=== PATIENT | male | born 1955 | race Caucasian/White ===

== ENCOUNTER → 2016-08-08 11:17 | Outpatient (CLI) | payer BC ==
[2016-08-08 11:47] LABS: BASOPHILS 0.4 % (0-2); EOSINOPHILS 2.4 % (0-7); HEMATOCRIT 38.2 % (42.0-54.0); HEMOGLOBIN 12.5 g/dL (13.5-17.5); IMMATURE GRANULOCYTES 0.1 % (0-5); LYMPHOCYTES 33.6 % (15-50); MCH 31.3 pg (26.0-34.0); MCHC 32.7 g/dL (31.0-37.0); MCV 95.7 fL (80.0-100.0); MEAN PLATELET VOLUME 7.9 fL (7.4-10.4); MONOCYTES 6.7 % (2-11); NEUTROPHILS 56.8 % (40-80); PLATELET COUNT 181 10x3/uL (130-400); RBC 3.99 10x6/uL (4.20-6.10); RDW 13.7 % (11.5-14.5); WBC 6.7 10x3/uL (4.8-10.8)
[2016-08-08 12:04] LABS: ALBUMIN 3.7 g/dL (3.4-5.0); ANION GAP 10.2 mmol/L (8-16); BILIRUBIN - TOTAL 0.38 mg/dL (0.2-1.3); CALCIUM 9.8 mg/dL (8.5-10.1); CARBON DIOXIDE 31.3 mmol/L (21.0-32.0); CREATININE - SERUM 1.4 mg/dL (0.6-1.3); POTASSIUM - SERUM 4.5 mmol/L (3.5-5.1); PROTEIN - SERUM 8.4 g/dL (6.4-8.2)
[2016-08-08 12:17] LABS: INR 1.04 (0.85-1.17); PROTIME 13.4 SECONDS (11.6-15.0)
[2016-08-09 09:12] LABS: ALPHA FETOPROTEIN -(TUMOR MRK) 4.2 ng/mL (0.0-8.3); HEPATITIS C ANTIBODY <0.1 (0.0-0.9)
== END | disposition home or self-care (01) ==
LOC: D.LAB 11:15
PROVIDERS: Internal Medicine Gastroenterology
DX: C18.9 Malignant neoplasm of colon, unspecified (principal); R68.89 Other general symptoms and signs; F10.10 Alcohol abuse, uncomplicated; K74.0 Hepatic fibrosis

== ENCOUNTER → 2016-10-30 20:54 | Outpatient (CLI) | payer BC | END | disposition home or self-care (01) | LOC: D.LABREF 20:54 | DX: M17.12 Unilateral primary osteoarthritis, left knee (principal); Z11.8 Encounter for screening for other infectious and parasitic diseases ==

== ENCOUNTER 2016-11-19 10:00 | Inpatient (IN) | payer BC ==
[~2016-11-19] VITALS: Ht 177.8 cm; Wt 136.4 kg
[~2016-11-19 10:00] MED LIST: ALFALFA PO; ASPIRIN EC81 M1 PO; BUPROPION HCL100 MG PO; CELEXA40 MG PO; COMBIGAN OPHT DR5 ML EACH EYE; CYCLOBENZAPRINE10 MG PO; DILAUDID4 MG PO; FISH OIL 1,0001 CA1 PO; FLOMAX0.4 MG PO; GLUCOSAMINE & C1 CAP PO; MECLIZINE HCL25 MG PO; NEXIUM40 MG PO; SUPER B COMPLE150 MG PO; TRAVATAN Z2.5 ML EACH EYE; TYLENOL #4 W/CO1 TAB PO; VITAMIN C1000 MG PO; VITAMIN D31000 UNIT PO; VITAMIN E400 UNI2 PO; XANAX0.5 MG PO; ZESTRIL20 MG PO; ZOCOR40 MG PO; ZYRTEC10 MG PO
[2016-11-19 12:15] LABS: ANION GAP 8.2 mmol/L (8-16); CALCIUM 9.4 mg/dL (8.5-10.1); CARBON DIOXIDE 31.2 mmol/L (21.0-32.0); CREATININE - SERUM 1.4 mg/dL (0.6-1.3); POTASSIUM - SERUM 4.4 mmol/L (3.5-5.1)
[2016-11-19 12:27] LABS: BASOPHILS 0.2 % (0-2); EOSINOPHILS 2.3 % (0-7); HEMATOCRIT 38.6 % (42.0-54.0); HEMOGLOBIN 12.6 g/dL (13.5-17.5); IMMATURE GRANULOCYTES 0.2 % (0-5); LYMPHOCYTES 34.9 % (15-50); MCH 31.7 pg (26.0-34.0); MCHC 32.6 g/dL (31.0-37.0); MCV 97.2 fL (80.0-100.0); MEAN PLATELET VOLUME 8.1 fL (7.4-10.4); MONOCYTES 8.9 % (2-11); NEUTROPHILS 53.5 % (40-80); PLATELET COUNT 188 10x3/uL (130-400); RBC 3.97 10x6/uL (4.20-6.10); RDW 13.6 % (11.5-14.5); WBC 6.1 10x3/uL (4.8-10.8)
[2016-11-19 12:46] LABS: APTT 30.4 SECONDS (22.8-39.4); INR 1.08 (0.85-1.17); PROTIME 13.8 SECONDS (11.6-15.0)
[2016-11-19 12:55] LABS: APPEARANCE CLEAR (CLEAR); BILIRUBIN NEGATIVE (NEGATIVE); COLOR YELLOW (YELLOW); GLUCOSE NEGATIVE (NEGATIVE); KETONE NEGATIVE (NEGATIVE); LEUKOCYTE ESTERASE NEGATIVE (NEGATIVE); NITRITE NEGATIVE (NEGATIVE); PROTEIN NEGATIVE (NEGATIVE); SPECIFIC GRAVITY 1.015 (1.005-1.020); UROBILINOGEN NORMAL (NORMAL)
[2016-11-25] VITALS (11 sets, daily range): BP systolic 105–155; BP diastolic 40–88; Ht 177.8 cm; Wt 136.4 kg
--- NOTE | 2016-11-25 09:07 | NUR ---
UNABLE TO REACH FAMILY FOR CATALINO
--- NOTE | 2016-11-25 10:59 | NUR ---
DR GARCIA NOTIFIED UPON ENTRANCE TO RR THE PATIENTS PAIN. DR GARCIA CAME TO BEDSIDE TO RE BLOCK THE PATIENT
--- NOTE | 2016-11-25 11:30 | NUR ---
PATIENT TO ROOM AT THIS TIME WITH IV INTACT. NO COMPLAINTS. VS STABLE. CALL LIGHT WITHIN REACH.
--- NOTE | 2016-11-25 18:55 | NUR ---
PATIENT IN BED WITH IV INTACT. NO COMPLAINTS. VS STABLE. CALL LIGHT WITHIN REACH. CPM ON. OFF AT 2150.
--- NOTE | 2016-11-25 19:30 | NUR ---
RECIEVED SHIFT REPORT. PT IS LYING IN BED. ALERT AND ORIENTED AND ABLE TO VERBALIZE NEEDS. IV IS PATENT AND FLUIDS ARE RUNNING PER ORDER. CPM ON. MARTHA HOSE TO LEFT LEG. SCD TO RIGHT LEG. PT C/O PAIN 09/13. NO NEEDS ARE VERBALIZED AT THIS TIME. WILL CONTINUE TO MONITOR. SIDE RAILS ARE UP X 2. BED IS IN LOWEST POSITION. BED ALARM IS ON FOR SAFETY. CALL LIGHT IS WITHIN REACH.
--- NOTE | 2016-11-25 20:35 | NUR ---
SHIFT ASSESSMENT COMPLETED. NIGHT MEDS GIVEN WITH NO PROBLEMS. PT C/O PAIN 09/13. ADMINISTERED PRESCRIBED PRN TORADOL PER ORDER. DENIES FURTHER NEEDS. WILL MONITOR. SIDE RAILS X 2. BED LOW. BED ALARM ON. CALL LIGHT IN REACH.
[2016-11-26] VITALS (7 sets, daily range): BP systolic 105–133; BP diastolic 49–64
[2016-11-26 06:30] LABS: HEMATOCRIT 34.1 % (42.0-54.0); HEMOGLOBIN 11.3 g/dL (13.5-17.5); MCH 31.6 pg (26.0-34.0); MCHC 33.1 g/dL (31.0-37.0); MCV 95.3 fL (80.0-100.0); MEAN PLATELET VOLUME 8.1 fL (7.4-10.4); RBC 3.58 10x6/uL (4.20-6.10); RDW 13.3 % (11.5-14.5); WBC 9.8 10x3/uL (4.8-10.8)
--- NOTE | 2016-11-26 08:01 | CN ---
PATIENT NAME:REINALDO NOLAN MEDICAL RECORD: [id number] : 51 LOCATION:D.MS [facility]12 ADMIT DATE: 11/25/16 ACCOUNT: [id number] CONSULTING PHYSICIAN: REINALDO CASEY MD REFERRING PHYSICIAN: LIZ CORTES DO DATE OF CONSULTATION: 11/25/2016 This consult was requested by Dr. Cortes for medical management. HISTORY OF PRESENT ILLNESS: This is a 61-year-old white male who was admitted by Dr. Cortes for elective left total knee arthroplasty and severe arthritis. I am consulted for medical management. PAST MEDICAL HISTOROY: Hypertension, reflux, depression, high cholesterol, glaucoma, arthritis, sleep apnea, BPH, chronic lumbago with 2 back surgeries and colon cancer. PAST SURGICAL HISTORY: Partial colectomy, lumbar back surgery times 2, right and left shoulder surgery and now left total knee arthroplasty. DRUG ALLERGIES: None. HOME MEDICATIONS: Zyrtec 10 mg at bedtime, Flomax 0.4 mg at bedtime, Flexeril 10 mg t.i.d. p.r.n. pain, lisinopril 20 mg once a day, simvastatin 40 mg at bedtime, fish oil 1000 mg 3 times a day, Wellbutrin-XL 300 once a day, Xanax 0.5 mg t.i.d. p.r.n. anxiety, aspirin 81 mg once a day, Tylenol #4 one every 6 hours as needed for pain, Travatan Z 0.004% ophthalmic drops, 1 drop in each eye at bedtime, Combigan ophthalmic drops, 1 drop each eye twice a day, Nexium 40 mg once a day, meclizine 25 mg twice a day as needed for dizziness and vitamin C 1000 mg twice a day. He is also on vitamin D 2000 units twice a day, vitamin B complex 1 b.i.d., vitamin E 400 units twice a day, glucosamine chondroitin 1 capsule 3 times a day. FAMILY HISTORY: Father at age 83 of parkinsonism. Mother is alive with history of diabetes. HABITS: She is a current smoker, drinks alcohol socially. No illicit drug use. REVIEW OF SYSTEMS: GENERAL: He has been trying to lose weight, so he can have knee replacements and he has had about 20-pound weight loss. HEENT: No particular sinus or allergy problems. RESPIRATORY: Long time smoker. No known history of emphysema or asthma. CARDIAC: No known coronary artery disease. GASTROINTESTINAL: Has some arthritis. GENITOURINARY: He has enlarged prostate. MUSCULOSKELETAL: He has arthritic aches and pains, needs bilateral knee replacements. NEUROLOGIC: No headaches. No seizures. PSYCHIATRIC: He has depression. PHYSICAL EXAMINATION: VITAL SIGNS: Today, he is awake and alert. He is postoperative now and he is afebrile with a heart rate of 56, respirations 16, blood pressure 126/71. HEENT: Grossly within normal limits. CONSULT REPORT [id number] REINALDO NOLAN NECK: Supple. No JVD or bruit. HEART: Regular rate and rhythm. LUNGS: Clear. ABDOMEN: Soft, obese, nontender. EXTREMITIES: He has a dressing around the left knee area. No edema. PREOPERATIVE LABORATORY: CBC with a white count of 6100, hemoglobin 12.6 with a normal differential. INR was 1.08. Basic metabolic panel was okay except BUN barely elevated at 20, creatinine a little elevated at 1.4, glucose was 86. Urinalysis unremarkable. Chest x-ray done on November 19 shows diffuse interstitial disease with degenerative changes of the thoracic spine. ASSESSMENT: 1. Hypertension. 2. Arthritis status post left total knee arthroplasty. 3. Glaucoma. 4. Hyperlipidemia. 5. Benign prostatic hypertrophy. PLAN: We will continue his usual home medications. We will monitor blood pressure. Thank you for the consult. We will follow while he is in the hospital. TRANSINT:[id number] Voice Confirmation ID: [id number] DOCUMENT ID: [id number] REINALDO CASEY MD at 0801 CC: [id number] DICTATION DATE: 11/25/161854 CHILDREN'S TUTOR: 11/25/162206 ADM IN [place] [id number] [place] [address]
--- NOTE | 2016-11-26 08:12 | OP ---
PATIENT NAME: REINALDO MORRISON MEDICAL RECORD: [id number] :51 LOCATION:[facility] ADMISSION DATE:11/25/16 SURGEON: LIZ CORTES DO DATE OF OPERATION: 11/25/2016 PREOPERATIVE DIAGNOSIS: Left knee degenerative joint disease. POSTOPERATIVE DIAGNOSIS: Left knee degenerative joint disease. PROCEDURE: Left total knee arthroplasty. INDICATIONS: Mr. Morrison is a 61-year-old male that has had bilateral knee pain for quite some time. He has attempted years of conservative management including injections, which have failed and he wants something done surgically to fix his knee. We talked extensively about total knee arthroplasty and the risks and benefits in the office and he consented to proceed with the total knee replacement. DESCRIPTION OF PROCEDURE: The patient was given an adductor canal block in the preoperative area by anesthesia where he was consented and marked. He was then taken to the operative suite, placed in supine position, given general anesthetic. A timeout was performed and all parties were in agreement with the correct side, site and patient. He was then prepped and draped in a sterile fashion. The left leg was elevated and an Esmarch was used to exsanguinate the leg and the tourniquet was inflated to 350 mmHg. At that time, the knee was then placed in about 90 degrees of flexion, incision was made in the midline of the anterior knee down to the capsule and the capsule was cleared off. A medial parapatellar incision was then made with a new knife and the joint was entered.. A medial release on the tibia was then done. The fat pad was taken out behind the patellar tendon and the patella was everted, measured and milled with a 40 sizer, knee was then flexed and the distal femur was then cut. The attention was then drawn to the tibia. The tibia was cut, we sized it and then cut more tibia. The knee was then balanced, more medial release was performed at that time. The knee was then flexed up and the femur was measured to be a 72.5. The cutting jig was placed and kun wings were used to ensure there was not an exorbitant amount notching on the anterior femur. Once that was performed, the cuts were made on the anterior femur, the chamfer cut on the anterior side. The posterior condyles were cut and the posterior chamfer cut was done. The jig was then removed and the knee trial was placed on the femur. We then trialed the tibia, sized and seen to have a near little more release, which was done. PCL was pie crusted that time. A small release of the PCL was done. He was continued to be tight medially. The sizing was done. The tibia was then exposed and prepped using the sizer. It sized to be an 83 on the tibia and that was then done. The tibia was then irrigated copiously and dried very well and Palacos cement was placed into the tibia as well as on the implant. The tibia was then placed and impacted. Excess cement was removed from around the tibial implant. Press-fit femur was then placed, a 72.5 and a 10 poly was placed. The knee was held in extension. The patella was then drilled. A 43 peg implant was placed and cemented onto the patella. Once the cement had dried, trialing then began. We trialled and found the 12 standard to be the correct size of the poly. It was then placed and tourniquet was let down at 97 minutes. All bleeders were coagulated using the plasma blade. We then used #1 pops to close the capsule after copious irrigation was done and the capsule was irrigated on top of that again and a 2-0 Vicryl using inverted interrupted fashion was then used to close the skin and a ZipLine was placed over the incision and used to OPERATIVE REPORT [id number] REINALDO MORRISON approximate the skin. Adaptic, 4 x 4's, ABD, and Webril were then placed and Maxx wrap were then placed over the knee and knee-high MARTHA hose was placed on the left lower extremity. The patient was awakened and taken to recovery in stable condition. Estimated blood loss was 200. TRANSINT:[id number] Voice Confirmation ID: [id number] DOCUMENT ID: [id number] LIZ CORTES DO at 0812 CC: [id number] DICTATION DATE: 11/25/16 1038 GUIDE CHANGER: 11/25/16 1226 ADM IN [facility] [address] [place] [address]
--- NOTE | 2016-11-26 11:06 | NUR ---
Patient Name: REINALDO NOLAN Admission Status: Elective Accout number: [id number] Admission Date: 11-25-2016 : 1955 Admission Diagnosis: Attending: LIZ CORTES Current LOS: 1 Anticipated DC Date: Planned Disposition: Home Primary Insurance: [employer] OUT OF STATE Discharge Planning Comments: CM met with patient to assess discharge planning needs. Patient lives independently at home in [place] with his Jamie. Jamie will be his furniture mover driver home. He states that he has a bedside commode, walker, CPAP, CPM and Ice Machine at home. He does not have any steps or stairs to enter in his home. Patient plans on going to [facility] for his therapy and CM will set up prior to discharge. CM will continue to follow and assist as needed. PCP: Carmela Bush in [place] Jamie () [phone] cell [phone] home Gis Developer: Mimi Sam * Is the patient Alert and Oriented? Yes 0 * How many steps to enter\exit or inside your home? 0 0 * PCP CARMELA 0 * Pharmacy [facility] IN [place] 0 * Preadmission Environment Home with Family 0 * ADLs Independent 0 * Equipment Bedside Commode CPAP Walker 0 * Other Equipment ICE MACHINE AND CMP 0 * List name and contact numbers for known caregivers / representatives who currently or will assist patient after discharge: JAMIE () [phone] 0 * Community resources currently utilized None 0 * Additional services required to return to the preadmission environment? No 0 * Can the patient safely return to the preadmission environment? Yes 0 * Has this patient been hospitalized within the prior 30 days at any hospital? No 0 Grand Total: 0
--- NOTE | 2016-11-26 19:51 | NUR ---
PATIENT AWAKE, ALERT AND ORIENTED X'S 4. RESPIRATIONS ARE EVEN AND UNLABORED ON ROOM AIR. CPM TO LEFT LEG. NO SIGNS OF DISTRESS NOTED. PATIENT DENIES NEEDS.
[2016-11-27 04:00] VITALS: BP 123/69
[2016-11-27 06:01] LABS: HEMATOCRIT 35.8 % (42.0-54.0); HEMOGLOBIN 11.8 g/dL (13.5-17.5); MCH 31.5 pg (26.0-34.0); MCV 95.5 fL (80.0-100.0); MEAN PLATELET VOLUME 8.3 fL (7.4-10.4); RBC 3.75 10x6/uL (4.20-6.10); RDW 13.6 % (11.5-14.5); WBC 8.3 10x3/uL (4.8-10.8)
--- NOTE | 2016-11-27 07:30 | NUR ---
RECIEVED PT DURING WALKING ROUNDS. PT LAYING FLAT IN BED WITH CPM ON AT THIS TIME, PT COMPLAINS OF PAIN OF A 10 ON A SCALE OF 1-10, NO MEDICATION TO BE GIVEN AT THIS TIME. ASSESSMENT DONE PER FLOWSHEET. BED IN LOW POSITION AND CALL LIGHT WITHIN REACH. WILL CONTINUE TO MONITOR.
--- NOTE | 2016-11-27 08:45 | NUR ---
CPM TAKEN OFF AT THIS TIME.
[2016-11-27 10:19] VITALS: BP 125/68
[2016-11-27 13:28] VITALS: BP 130/65
--- NOTE | 2016-11-27 14:35 | NUR ---
MARTHA SANCHEZ TAKEN OFF AT THIS TIME, DRESSING CHANGED TO PTS OPERATIVE LEG. NO SKIN ISSUES NOTED. PT SITTING IN CHAIR WITH COMPLAINTS OF PAIN OF A 3 ON A SCALE OF 1-0. CALL LIGHT WITHIN REACH. WILL CONTINUE TO MONITOR.
--- NOTE | 2016-11-27 14:38 | NUR ---
PATIENT DISCHARGING HOME TODAY WITH OUTPATIENT PT SET UP FOR ThursdayNov @ 11:45. PATIENT GIVEN INFORMATION CARD WITH INFO. PT STATES HE HAS EVERYTHING HE NEEDS AT HOME. CM WILL CONTINUE TO FOLLOW AND ASSIST
[2016-11-27] MEDS ORDERED: ELIQUIS2.5 MG PO (16:29)
[2016-11-27] MEDS ORDERED: OXYCODONE HCL5 MG PO (16:29)
[2016-11-27] MEDS ORDERED: ATARAX 25 MG TA25 MG PO (16:29)
[2016-11-27] MEDS ORDERED: OxyCONTIN PO (16:29)
[2016-11-27] MEDS ORDERED: KEFLEX500 MG PO (16:30)
--- NOTE | 2016-11-27 18:27 | NUR ---
IV REMOVED AND DISCHARGE INSTRUCTIONS GIVEN BY SHAYNE NOVOA RN. DISCHARGED VIA WHEELCHAIR TO HOME WITH A FAMILY MEMBER.
== END 2016-11-27 18:28 | disposition home or self-care (01) | DRG 470 ==
LOC: D.MS 11-25 05:13 → D.SDCHOLD 11-25 05:13 → D.MS 11-25 11:07
PROVIDERS: ADMIT Orthopaedic Surgery
PROC: 0SRD0J9 Replacement of Left Knee Joint with Synthetic Substitute, Cemented, Open Approach (ICD-10-PCS; principal; 2016-11-25 07:30)
DX: M17.12 Unilateral primary osteoarthritis, left knee (principal); I10 Essential (primary) hypertension; K21.9 Gastro-esophageal reflux disease without esophagitis; E78.00 Pure hypercholesterolemia, unspecified; H40.9 Unspecified glaucoma; N40.0 Benign prostatic hyperplasia without lower urinary tract symptoms; G47.33 Obstructive sleep apnea (adult) (pediatric); F17.200 Nicotine dependence, unspecified, uncomplicated

== ENCOUNTER 2016-12-30 05:53 | Inpatient (IN) | payer MEDICARE, BC ==
[2016-12-26 11:34] LABS: BASOPHILS 0.3 % (0-2); EOSINOPHILS 3.5 % (0-7); HEMATOCRIT 34.8 % (42.0-54.0); HEMOGLOBIN 11.6 g/dL (13.5-17.5); IMMATURE GRANULOCYTES 0.1 % (0-5); LYMPHOCYTES 33.4 % (15-50); MCH 31.6 pg (26.0-34.0); MCHC 33.3 g/dL (31.0-37.0); MCV 94.8 fL (80.0-100.0); MEAN PLATELET VOLUME 7.9 fL (7.4-10.4); MONOCYTES 5.4 % (2-11); NEUTROPHILS 57.3 % (40-80); RBC 3.67 10x6/uL (4.20-6.10); RDW 13.6 % (11.5-14.5); WBC 6.9 10x3/uL (4.8-10.8)
[2016-12-26 11:40] LABS: ANION GAP 12.1 mmol/L (8-16); CALCIUM 9.8 mg/dL (8.5-10.1); CARBON DIOXIDE 25.9 mmol/L (21.0-32.0); CREATININE - SERUM 1.3 mg/dL (0.6-1.3); PLATELET COUNT 198 10x3/uL (130-400)
[2016-12-26 11:41] LABS: APTT 32.9 SECONDS (22.8-39.4); INR 1.09 (0.85-1.17)
[2016-12-26 11:58] LABS: APPEARANCE CLEAR (CLEAR); BILIRUBIN NEGATIVE (NEGATIVE); COLOR YELLOW (YELLOW); GLUCOSE NEGATIVE (NEGATIVE); KETONE NEGATIVE (NEGATIVE); LEUKOCYTE ESTERASE NEGATIVE (NEGATIVE); NITRITE NEGATIVE (NEGATIVE); PROTEIN NEGATIVE (NEGATIVE); SPECIFIC GRAVITY 1.015 (1.005-1.020); UROBILINOGEN NORMAL (NORMAL)
[~2016-12-30] VITALS: Ht 177.8 cm; Wt 130.5 kg
[~2016-12-30 05:53] MED LIST changes: +ATARAX 25 MG TA25 MG PO; +ELIQUIS2.5 MG PO; +KEFLEX500 MG PO; +OXYCODONE HCL5 MG PO; +OxyCONTIN PO
[2016-12-30 09:51] VITALS: BP 131/85; BMI 43.1
[2016-12-30 17:43] VITALS: BP 114/57
--- NOTE | 2016-12-30 17:47 | NUR ---
RECIEVED TO ROOM 2213 FROM RECOVERY ROOM NO DISTRESS NOTED AWAKE AND ALERT ORINETD X 3 PAIN WELL CONTROLLED WITH TRIPLE BLOCK IN PLACE VITAL SIGNS WNL.
[2016-12-30 17:50] VITALS: BP 131/59; Ht 177.8 cm; Wt 130.5 kg
--- NOTE | 2016-12-30 20:00 | NUR ---
ASSESSMENT PER FLOWSHEET. DRESSING TO RT KNEE C/D/I WITH MARTHA HOSE IN PLACE. SCD TO LEFT LEG. IV PATENT LEFT FOREARM OF LR AT 100CC'S/HR SITE CLEAR. VOIDS IN URINAL.
--- NOTE | 2016-12-30 21:30 | NUR ---
IV LEAKING IV REMOVED WITH TIP INTACT. RESITED TO LEFT HAND #20 G ANGIOCATH X1 ATTEMPT. RESUMED IV FLUIDS
--- NOTE | 2016-12-30 22:00 | NUR ---
MEDS GIVEN PER MAR.
[2016-12-31] VITALS: BP 125/65
--- NOTE | 2016-12-31 | NUR ---
EYES CLOSED RESPIRATIONS WITH EASE AND UNLABORED.
--- NOTE | 2016-12-31 03:17 | NUR ---
AWAKE EATING SNACKS .
--- NOTE | 2016-12-31 06:00 | NUR ---
MEDS PER MAR. NO CHANGES IN ASSESSMENT
[2016-12-31 06:04] LABS: HEMOGLOBIN 10.3 g/dL (13.5-17.5); MCH 32.2 pg (26.0-34.0); MCHC 33.2 g/dL (31.0-37.0); MCV 96.9 fL (80.0-100.0); MEAN PLATELET VOLUME 7.9 fL (7.4-10.4); RBC 3.2 10x6/uL (4.20-6.10); RDW 13.6 % (11.5-14.5); WBC 10.6 10x3/uL (4.8-10.8)
--- NOTE | 2016-12-31 07:40 | NUR ---
PATIENT RECEIVED ALERT IN LOW DOYLE POSITION. NO SIGNS OF DISTRESS NOTED. DENIES PAIN AND OTHER NEEDS. SIDE RAILS UP X2. BED IN LOW POSITION. CALL LIGHT REACH. CPM TO RIGHT LEG.
--- NOTE | 2016-12-31 08:47 | NUR ---
ALERT IN BED EATING BREAKFAST. TOLERATING WELL. SCHEDULED MEDICATION ADMINISTERED. DENIES NEEDS. SIDE RAILS UP X2. BED IN LOW POSITION. CALL LIGHT IN REACH.
[2016-12-31 08:53] VITALS: BP 125/79
--- NOTE | 2016-12-31 09:30 | NUR ---
PATIENT UP AMBULATING IN HALLWAY WITH PT
--- NOTE | 2016-12-31 11:00 | NUR ---
SITTING UP IN CHAIR AT BEDSIDE TALKING ON PHONE. NO SIGNS OF DISTRESS NOTED. CALL LIGHT IN REACH.
[2016-12-31 12:21] VITALS: BP 128/69
--- NOTE | 2016-12-31 13:22 | CN ---
PATIENT NAME:REINALDO NOLAN MEDICAL RECORD: [id number] : 51 LOCATION:D.MS Madsen[facility]13 ADMIT DATE: 12/30/16 ACCOUNT: [id number] CONSULTING PHYSICIAN: REINALDO CASEY MD REFERRING PHYSICIAN: LIZ CORTES DO DATE OF CONSULTATION: 12/30/2016 Medical Management REQUESTING PHYSICIAN: Dr. Cortes for medical management. HISTORY OF PRESENT ILLNESS: This is a 61-year-old white male who was admitted for elective right total knee arthroplasty. I am consulted for medical management. PAST MEDICAL HISTORY: He has a past medical history of hypertension, reflux, depression, high cholesterol, glaucoma, arthritis, sleep apnea, BPH, chronic lumbago with 2 back surgeries and colon cancer. PAST SURGICAL HISTORY: He has had a partial colectomy for the colon cancer, right and left shoulder surgeries. He has had a left total knee arthroplasty and today a right total knee arthroplasty. DRUG ALLERGIES: None. HOME MEDICATIONS: Zyrtec 10 mg at bedtime, Flomax 0.4 mg at bedtime, Flexeril 10 mg p.r.n. spasm/pain, lisinopril 20 mg a day, simvastatin 40 mg at bedtime, fish oil 1000 mg 3 a day, Wellbutrin-XL 300 once a day, Xanax 0.5 t.i.d. p.r.n. anxiety, aspirin 81 mg once a day, oxycodone IR 5 q.6 hours p.r.n. pain, Travatan Z 0.004% ophthalmic drops 1 drop in each eye at bedtime, Combigan ophthalmic drops 1 drop in each eye twice a day, Nexium 40 mg once a day, meclizine 25 mg twice a day p.r.n. dizziness. He takes a vitamin C, vitamin D, vitamin B complex, vitamin E, Glucosamine chondroitin 1 capsule 3 times a day. FAMILY HISTORY: Father at 83 of parkinsonism. Mother is alive with history of diabetes. HABITS: Current smoker, drinks alcohol socially. No illicit drug use. REVIEW OF SYSTEMS: GENERAL: No major weight changes recently. HEENT: Takes allergy medicine. RESPIRATORY: Long time smoker. No diagnosis of emphysema or asthma. CARDIAC: No known coronary disease. GASTROINTESTINAL: He has had some arthritis. GENITOURINARY: Has BPH. MUSCULOSKELETAL: Arthritic aches and pains and now has had bilateral knee replacements. NEUROLOGIC: No headaches or seizures. PSYCHIATRIC: He has depression and anxiety. PHYSICAL EXAMINATION: VITAL SIGNS: Today, temperature 97.0, pulse 91, respirations 16, blood pressure 114/57, O2 sat 95%. He is awake and alert, eating a sandwich no acute distress. HEENT: Grossly within normal limits. CONSULT REPORT [id number] ANREINALDO DAVIDSON NECK: Supple. HEART: Regular rate and rhythm without murmur. LUNGS: Clear. ABDOMEN: Soft, obese, nontender. EXTREMITIES: Dressing around the right knee. No edema. PREOPERATIVE LABORATORY DATA DONE LAST WEEK: CBC showed a white count 6900, hemoglobin 11.6, hematocrit 34.8 with normal differential. INR 1.09. Basic metabolic panel is all normal. Urinalysis was clear. Chest x-ray done showed no acute cardiopulmonary process. ASSESSMENT: 1. Hypertension. 2. Arthritis, status post right total knee arthroplasty. 3. Glaucoma. 4. Hyperlipidemia. 5. Benign prostatic hypertrophy. PLAN: Continue his usual home medicines. We will monitor blood pressure and thank you for the consult. We will follow while he is in the hospital. TRANSINT:[id number] Voice Confirmation ID: [id number] DOCUMENT ID: [id number] REINALDO CASEY MD at 1322 CC: [id number] DICTATION DATE: 12/30/162042 TAPER MACHINE: 12/30/162233 ADM IN [place] [id number] [place] [address]
--- NOTE | 2016-12-31 15:38 | NUR ---
SITTING UP IN CHAIR ALERT. NO SIGNS OF DISTRESS NOTED. PO DILAUDID ADMINISTERED PER PRN ORDER. NO FURTHER NEEDS VOICED. CALL LIGHT IN REACH.
[2016-12-31 15:39] VITALS: BP 139/76
--- NOTE | 2016-12-31 18:00 | NUR ---
PATIENT SITTING UP IN CHAIR EATING DINNER. DENIES NEEDS. CALL LIGHT IN REACH.
[2016-12-31 20:00] VITALS: BP 130/69
[2017-01-01] VITALS: BP 121/51
--- NOTE | 2017-01-01 00:30 | NUR ---
1930)REC'D. IN BED CPM ON. DENIES ANY DISCOMFORT AT PRESENT TIME.LONG LEG MARTHA STOCKING INTACT TO RT. LEG TOES VISIBLE WITH MINIMAL SWELLING NOTED.WIGGLES TOES AND DORSIFLEXES WITHOUT DIFFICULTY. WILL CONTINIE TO MONITOR FOR ANY CHGES SND FOLLOW CURRENT PLAN OF CARE
--- NOTE | 2017-01-01 01:12 | NUR ---
EYES CLOSED RESPIRATIONS WITH EASE AND UNLABORED. DRESSING TO RT KNEE C/D/I MARTHA HOSE ON IN PLACE.
[2017-01-01 04:00] VITALS: BP 136/62
[2017-01-01 05:40] LABS: HEMATOCRIT 29.7 % (42.0-54.0); HEMOGLOBIN 9.8 g/dL (13.5-17.5); MCH 31.6 pg (26.0-34.0); MCV 95.8 fL (80.0-100.0); MEAN PLATELET VOLUME 7.8 fL (7.4-10.4); RBC 3.1 10x6/uL (4.20-6.10); RDW 13.6 % (11.5-14.5)
[2017-01-01 05:41] LABS: WBC 6.9 10x3/uL (4.8-10.8)
--- NOTE | 2017-01-01 07:26 | NUR ---
REPORT RECEIVED FROM JEWELRY DRILL OPERATOR NURSE. CALL LIGHT IN REACH.
[2017-01-01 07:57] VITALS: BP 114/63
[2017-01-01] MEDS ORDERED: ELIQUIS2.5 MG PO (08:02)
[2017-01-01] MEDS ORDERED: DILAUDID2 MG PO (08:03)
[2017-01-01] MEDS ORDERED: KEFLEX500 MG PO (08:04)
--- NOTE | 2017-01-01 08:55 | NUR ---
ASSESSMENT COMPLETED. DILAUDID PO WITH AM MEDS. PT IN ROOM. CALL LIGHT IN REACH. WILL CONTINUE WITH PLAN OF CARE.
--- NOTE | 2017-01-01 10:09 | NUR ---
Patient Name: REINALDO NOLAN Admission Status: Elective Accout number: [id number] Admission Date: 12-30-2016 : 1955 Admission Diagnosis:UNILATERAL PRIMARY OSTEOARTHRITIS, RIGHT KNEE Attending: LIZ CORTES Current LOS: 2 Anticipated DC Date: Planned Disposition: Home Primary Insurance: MEDICARE A & B Discharge Planning Comments: CM met with patient to assess discharge planning needs. Patient lives independently with his who he is having problems with. He states that she has a couple of friends who will come to the hospital to pick him up. He denies any steps in his home and stated that he already has a PT appointment will [facility] at 0800 on Thursday morning. He has a CPM and Ice Machine at home, walker, CPAP, cane, walker, bedside commode & an electric bed at home. He states that he is independent with his care at home. CM will continue to follow and assist with discharge planning needs. PCP: Jones Bush in [facility] Merchandise Examiner: Mimi Sam * Is the patient Alert and Oriented? Yes 0 * How many steps to enter\exit or inside your home? 0 0 * PCP Jones 0 * Pharmacy [facility] 0 * Preadmission Environment Home with Family 0 * ADLs Independent 0 * Equipment Bedside Commode Cane CPAP Rolling Walker Shower Chair Walker Wheelchair 0 * Other Equipment CPM ICE MACHINE ELECTRIC BED 0 * Community resources currently utilized None 0 * Please name any agencies selected above. WILL USE [facility] 0 * Additional services required to return to the preadmission environment? No 0 * Can the patient safely return to the preadmission environment? Yes 0 * Has this patient been hospitalized within the prior 30 days at any hospital? No 0 Grand Total: 0
--- NOTE | 2017-01-01 10:27 | NUR ---
WAS ASLEEP IN CHAIR. AWAKENED PATIENT AND TOLD HIM I NEEDED TO CHANGE THE DRSG THAT HE REMOVED AND NOTICED PATIENT HAD RUBBED ALOE VERA ALLOVER INCISION. EXPLAINED TO PATIENT THAT HE DOES NOT NEED TO DO THAT AND THE REASONING FOR NOT DOING IT. TOOK THE DRSG OUT OF MY HAND AND TRIED TO PLACE IT ALTHOUGH IT WOULD NOT STICK. CLEANED THE ALOE VERA OFF AND APPLIED ANOTHER CLEAN DRSG.
--- NOTE | 2017-01-01 12:29 | NUR ---
PT ASLEEP WITH NO VISABLE SIGNS OF DISCOMFORT. BED IN LOW POSITION AND CALL LIGHT WITHIN REACH. WILL CONTINUE TO MONITOR.
--- NOTE | 2017-01-01 14:05 | NUR ---
DC INSTRUCTIONS EXPLAINED TO PATIENT. VERBALIZED UNDERSTANDING. IV DC'D WITH TIP INTACT. RXs FOR DILAUDID, ELIQUIS, AND KEFLEX HANDED TO PATIENT. WAITING ON RIDE HOME.
--- NOTE | 2017-01-01 14:50 | NUR ---
DC'D TO VEHICLE VIA WC WITH FRIEND.
--- NOTE | 2017-01-02 07:20 | OP ---
PATIENT NAME: REINALDO MORRISON MEDICAL RECORD: [id number] :51 LOCATION:[id number] ADMISSION DATE:12/30/16 SURGEON: KUN CORTES DO DATE OF OPERATION: 12/26/2016 PROCEDURE PERFORMED: Right total knee arthroplasty. PREOPERATIVE DIAGNOSIS: Right knee end-stage osteoarthritis. POSTOPERATIVE DIAGNOSIS: Right knee and-stage osteoarthritis. INDICATIONS: Mr. Morrison is a 61-year-old male that presented to my office with bilateral knee end-stage osteoarthritis, failed injections and all kinds of conservative treatment and desired to have his knees replaced to improve his activities of daily living. He was tired and is affecting his life. The left knee was done several weeks ago and he wants the right one done as well and he had progressed well with his left and regained his range of motion and strength. He is scheduled for today. Risks and benefits of procedure were discussed with the patient in the office and he consented to the procedure. SURGEON: Kun Cortes DO DESCRIPTION OF PROCEDURE: The patient was given a block in the preoperative area and taken to the operative suite. The patient was then placed in the supine position and given general anesthetic. The right leg was identified and had been previously marked, prepped and draped and a timeout was then performed. Once this was done, everyone was in agreement, the patient was given 3 grams Ancef preoperatively. The right leg was exsanguinated with an Esmarch and the tourniquet was inflated to 350 mmHg. An anterior midline incision was then made down to the capsule and a fresh blade was used to do the capsulotomy, medial parapatellar approach. The patella was then everted and prepped and incised. Attention was then drawn to the distal femur. The intramedullary guide for the femur was then drilled and the distal femur was cut. The attention was then drawn to the tibia and a medial release was done at that time due to the varus alignment of the knee. The tibia was cut. Extension block was attempted to be placed and could not be and more medial release was done as well as more tibia was resected until the extension block could be placed. The knee was then flexed and the femur was sized to be 72.5 and the 4-in-1 cutting block was placed in the femur. Femur was cut. Once this is done, the femoral trial was placed on the femur and a tibial tray was attempted to be placed in with a 10 poly and it was too tight and more extensive release was done medially and posterior capsule. The PCL was also partially released. Once this was done, the tibial tray barely fit with a very tight fit and the femur was then prepped, holes were drilled and the patella was prepped as well. Once this was done, the tibia was prepped and sized to be an 83. The punch was made and the cement was mixed. The tibial tray was placed and excess cement was removed. The femur was then placed and the 10 poly was placed and the knee was brought out to extension. The patella cement had hardened prior to getting to the patella. A new batch of cement was mixed and the patella was then placed and the cement hardened. The tourniquet was let down at 98 minutes and Santa was placed into the posterior knee as well as the gutters. The knee was then ranged and the 10 standard poly was used and found to be of appropriate size with good medial-lateral and anterior-posterior stability with it and the 10 E poly was placed in the knee and the locking mechanism was also placed at that time. The knee was then flexed approximately 90 degrees and the capsule was closed using OPERATIVE REPORT [id number] REINALDO MORRISON #1 pop offs and #1 runner in [id number] fashion. The skin was then closed with 2-0 Vicryl in an inverted interrupted pattern and a ZipLine was used to approximate the skin. Adaptic, 4 x 4's, ABD, Webril, and Maxx wrap were then placed on the knee and the knee high MARTHA hose was placed as well on the operative leg. Blood loss was 350 mL and he was awakened and taken to recovery in stable condition. TRANSINT:[id number] Voice Confirmation ID: [id number] DOCUMENT ID: [id number] KUN CORTES DO at 0720 CC: [id number] DICTATION DATE: 12/30/161707 SERVER ASSISTANT: 12/30/162102 DIS IN 01/01/17 [facility] [address] [place] [address]
== END 2017-01-01 14:50 | disposition home or self-care (01) | DRG 470 ==
LOC: D.MS 05:53 → D.SDCHOLD 05:53 → D.MS 17:40
PROVIDERS: ADMIT Orthopaedic Surgery
PROC: 0SRC0J9 Replacement of Right Knee Joint with Synthetic Substitute, Cemented, Open Approach (ICD-10-PCS; principal; 2016-12-30 11:15)
DX: M17.11 Unilateral primary osteoarthritis, right knee (principal); I10 Essential (primary) hypertension; H40.9 Unspecified glaucoma; F17.200 Nicotine dependence, unspecified, uncomplicated

== ENCOUNTER 2017-02-16 06:34 | Day surgery (SDC) | payer MEDICARE, OTHER ==
[2017-02-13 12:08] LABS: BASOPHILS 0.1 % (0-2); EOSINOPHILS 1.9 % (0-7); HEMATOCRIT 38.9 % (42.0-54.0); HEMOGLOBIN 12.6 g/dL (13.5-17.5); IMMATURE GRANULOCYTES 0.1 % (0-5); MCH 30.6 pg (26.0-34.0); MCHC 32.4 g/dL (31.0-37.0); MCV 94.4 fL (80.0-100.0); MEAN PLATELET VOLUME 7.8 fL (7.4-10.4); MONOCYTES 9.2 % (2-11); NEUTROPHILS 64.7 % (40-80); RBC 4.12 10x6/uL (4.20-6.10); WBC 8.3 10x3/uL (4.8-10.8)
[2017-02-13 12:11] LABS: APTT 31.1 SECONDS (22.8-39.4)
[2017-02-13 12:18] LABS: ANION GAP 11.5 mmol/L (8-16); CALCIUM 9.8 mg/dL (8.5-10.1); CARBON DIOXIDE 28.7 mmol/L (21.0-32.0); CREATININE - SERUM 1.1 mg/dL (0.6-1.3); POTASSIUM - SERUM 4.2 mmol/L (3.5-5.1)
[2017-02-13 12:19] LABS: PLATELET COUNT 272 10x3/uL (130-400)
[~2017-02-16] VITALS: Ht 177.8 cm; Wt 129.7 kg
[~2017-02-16 06:34] MED LIST changes: +BAYER ASPIRIN325 MG PO; +DILAUDID2 MG PO
[2017-02-16 06:39] VITALS: BP 92/54; Ht 177.8 cm; Wt 129.7 kg
[2017-02-16] MEDS ORDERED: DILAUDID4 MG PO (09:13)
--- NOTE | 2017-02-16 10:29 | NUR ---
[facility] CATHETER REMOVER BEFORE LEAVING OR AND TRANSFER TO PACU
--- NOTE | 2017-02-16 11:16 | OP ---
PATIENT NAME: REINALDO NOLAN MEDICAL RECORD: [id number] :51 LOCATION:D[facility] ADMISSION DATE: SURGEON: URIEL HANDY MD DATE OF OPERATION: 02/16/2017 SURGEON: Uriel Handy MD PREOPERATIVE DIAGNOSES: 1. Postoperative incisional hernia. 2. History of colon cancer. 3. Nicotine dependence. POSTOPERATIVE DIAGNOSES: 1. Postoperative incarcerated incisional hernia. 2. History of colon cancer. 3. Nicotine dependence. PROCEDURE: Laparoscopic incarcerated incisional hernia repair with mesh. ANESTHESIA: General. COMPLICATIONS: None. SPECIMENS: None. CASE: Clean. ESTIMATED BLOOD LOSS: 20 mL. OPERATIVE COURSE: After consent was obtained, the patient was taken to the operating room and placed in the supine position on the operating table. Next, general anesthesia was given via endotracheal intubation after a timeout was performed that confirmed the correct patient and procedure, general anesthesia was given via endotracheal intubation, the abdomen was prepped and draped in typical sterile fashion. Ioban dressing was placed. Local anesthetic was injected into the left upper quadrant at [place]. A stab incision was made with an 11-blade scalpel. Using a 5-mm bladeless optical trocar, the abdomen was entered under direct laparoscopic vision. Adequate pneumoperitoneum was achieved. The abdominal cavity was inspected. No evidence of bowel injury. No evidence of bleeding. Two additional trocars were placed, a 12-mm trocar in the left lower quadrant and 5-mm trocar in the suprapubic position and both were placed after administration of local anesthetic under direct laparoscopic vision. In the previous ostomy site, there was an incarcerated hernia containing a single loop of small bowel. The hernia sac was excised using electrocautery. The bowel was reduced. The bowel was meticulously inspected. There was no evidence of injury. The hernia defect measured approximately 4 cm, defect was circular. Next, using a #1 Prolene suture and a Homar-Adryan suture passer, using interrupted [id number] sutures, the hernia defect was closed. Next, a 4-1/[address] mesh was placed in the abdomen, again with the Echo positioning system, it was centered over the center of the closed hernia defect. The Echo positioning was deployed, the mesh was secured to the abdominal wall using then Optifix tacking device. The Echo positioning system OPERATIVE REPORT [id number] REINALDO NOLAN was removed. The abdominal cavity was copiously irrigated and suctioned. The small bowel again was meticulously inspected. No evidence of bowel injury. No evidence of bleeding. The remaining portion of the abdominal cavity was inspected. No evidence of bowel injury. No evidence of bleeding. At this time, all remaining instruments were removed. The abdomen was desufflated. Trocars were removed. Skin was closed with 4-0 Monocryl, Mastisol, and Steri-Strips. At the end of the case, all needle and instrument counts were correct. No complications occurred. The patient was extubated and transferred to the PACU in stable condition. TRANSINT:[id number] Voice Confirmation ID: [id number] DOCUMENT ID: [id number] URIEL HANDY MD at 1116 CC: [id number] DICTATION DATE: 02/16/17 0924 FOUNDER AND PRESIDENT: 02/16/17 1043 [id number] [place] [address]
== END 2017-02-16 11:30 | disposition home or self-care (01) ==
LOC: D.OPS 06:34 → D.PAN 08:00 → D.OPS 11:30
PROVIDERS: Anesthesiology
DX: K43.2 Incisional hernia without obstruction or gangrene (principal); F17.200 Nicotine dependence, unspecified, uncomplicated; I10 Essential (primary) hypertension; K21.9 Gastro-esophageal reflux disease without esophagitis; G47.30 Sleep apnea, unspecified; E66.01 Morbid (severe) obesity due to excess calories; Z68.41 Body mass index [BMI] 40.0-44.9, adult; Z01.812 Encounter for preprocedural laboratory examination